=== PATIENT | female | born 1965 ===

== ENCOUNTER 2018-03-02 09:27 | Outpatient (CLI) | payer OTHER ==
[~2018-03-02] VITALS: Ht 162.6 cm; Wt 56.7 kg
[2018-03-02] MEDS ORDERED: EAR WAX REMOVER15 ML OT (10:25)
== END 2018-03-02 09:45 | disposition home or self-care (01) ==
LOC: OFIC 805 09:27
DX: K14.1 Geographic tongue (principal); H61.23 Impacted cerumen, bilateral

== ENCOUNTER 2018-08-01 16:49 | Outpatient (CLI) | payer OTHER ==
[~2018-08-01 16:49] MED LIST: EAR WAX REMOVER15 ML OT
== END 2018-08-01 17:41 | disposition home or self-care (01) ==
LOC: LAB 16:49
DX: N30.00 Acute cystitis without hematuria (principal); B96.29 Other Escherichia coli [E. coli] as the cause of diseases classified elsewhere

== ENCOUNTER 2018-08-03 07:48 | Outpatient (CLI) | payer OTHER | END 2018-08-03 17:00 | disposition home or self-care (01) | LOC: SONOGRAMA 07:48 | DX: N30.00 Acute cystitis without hematuria (principal) ==

== ENCOUNTER 2021-10-10 09:45 | Outpatient (CLI) | payer OTHER | END 2021-10-10 09:54 | disposition home or self-care (01) | LOC: LAB 09:45 | DX: Z03.818 Encounter for observation for suspected exposure to other biological agents ruled out (principal) ==

== ENCOUNTER 2022-01-05 11:47 | Outpatient (CLI) | payer OTHER | END 2022-01-05 11:56 | disposition home or self-care (01) | LOC: LAB 11:47 | DX: Z20.822 Contact with and (suspected) exposure to COVID-19 (principal) ==